=== PATIENT | female | born 1960 | race African-American/Black ===

== ENCOUNTER 2022-02-18 10:42 | Outpatient (CLI) | payer MEDICARE | END 2022-02-18 10:43 | disposition home or self-care (01) | LOC: BICMAMMO 10:42 | PROVIDERS: ATTEND Family Medicine | DX: Z12.31 Encounter for screening mammogram for malignant neoplasm of breast (principal); Z80.3 Family history of malignant neoplasm of breast | CPT/HCPCS: 77063; 77067 ==

== ENCOUNTER 2022-03-19 17:07 | Inpatient (IN) | payer MEDICARE, MEDICAID ==
[2022-03-19 19:28] VITALS: BMI 35.2
[2022-03-19] MEDS ORDERED: Senokot S 8.6-50 MG TAB PO PRN (19:46)
[2022-03-19] MEDS ORDERED: Bisacodyl 5 MG TAB PO PRN (19:46)
[2022-03-19] MEDS ORDERED: Ondansetron PF 4 MG/2 ML Vial IVP PRN (19:46)
[2022-03-19] MEDS ORDERED: Melatonin 3 MG TAB PO PRN (19:54)
[2022-03-19] MEDS ORDERED: Enoxaparin Sodium 40 MG/0.4 ML SYRINGE SC SCH (20:00)
[2022-03-19] MEDS ORDERED: methylPREDNISolone Sod Succ/PF 1,000 MG in Sodium Chloride 0.9% 250 ML 250 ML IVPB SCH (20:00)
[2022-03-19] MEDS ORDERED: Aspirin Chewable 81 MG TAB PO SCH (20:15)
[2022-03-19] MEDS: Sodium Chloride 0.9% 1,000 ML IV SCH (21:17)
[2022-03-20 06:04] LABS: #Lymphocytes 1.1 thou/uL (1.20-3.40); #Neutrophils 4.2 thou/uL (1.40-6.50); %Basophils 0.2 % (0.0-1.0); %Eosinophils 0.2 % (0.0-10.0); %Lymphocytes 20.7 % (21.0-51.0); %Monocytes 0.7 % (0.0-10.0); %Neutrophils 78.3 % (42.0-75.0); Hemoglobin 12.5 g/dL (12.0-16.0); Mean Corpuscular Hemoglobin 28.6 pg (27.0-31.0); Mean Corpuscular Volume 86.7 fL (78.0-98.0); Mean Platelet Volume 6.7 fL (7.4-10.4); Platelet Count 290 thou/uL (130-400); RBC Distribution Width 13.2 % (11.5-14.5); Red Blood Cell (RBC) Count 4.36 mill/uL (4.20-5.40); White Blood Cell (WBC) Count 5.3 thou/uL (4.8-10.8)
[2022-03-20 06:27] LABS: ALT (SGPT) 9 U/L (8-55); AST (SGOT) 12 U/L (5-34); Alkaline Phosphatase 61 U/L (40-110); Anion Gap 15 mmol/L (10-20); BUN (Urea Nitrogen) 16 mg/dL (9.8-20.1); Bilirubin, Total 0.2 mg/dL (0.2-1.2); Calc. Creatinine Clearance 127 mL/min (70-130); Calcium 9.1 mg/dL (7.8-10.44); Carbon Dioxide 21 mmol/L (23-31); Chloride 108 mmol/L (98-107); Globulin 3.8 g/dL (2.4-3.5); Glucose 143 mg/dL (80-115); Protein, Total 7.8 g/dL (5.8-8.1); Sodium 140 mmol/L (136-145)
[2022-03-20 07:55] LABS: Cardiac Risk 4.3 (Less than 4.5)
[2022-03-20] MEDS ORDERED: Enoxaparin Sodium 40 MG/0.4 ML SYRINGE SC SCH (09:00)
[2022-03-20] MEDS: Aspirin Chewable 81 MG TAB PO SCH (10:01)
[2022-03-20] MEDS: Amlodipine 10 MG TAB PO SCH (10:01)
[2022-03-20] MEDS: Sodium Chloride 0.9% 1,000 ML IV SCH ×2 (10:02→22:43)
[2022-03-20 12:43] LABS: Hemoglobin A1c 5.9 % (4.0-6.0)
[2022-03-20 12:51] LABS: Cardiac Risk 4.3 (Less than 4.5)
[2022-03-20] MEDS ORDERED: Magnevist 469MG/ML 20 ML VIAL ONE ×3 (14:32→15:07)
[2022-03-20 15:14] LABS: Syphilis Antibody Nonreactive (Nonreactive); Syphilis Antibody Index 0.27 S/CO (<1.00 Non-Reactive)
[2022-03-20] MEDS: Acetaminophen 325 MG TAB PO PRN ×2 (18:17→21:25)
[2022-03-20] MEDS: Atorvastatin Calcium 40 MG TAB PO SCH (20:28)
[2022-03-21 04:51] LABS: #Lymphocytes 1.2 thou/uL (1.20-3.40); #Monocytes 0.4 thou/uL (0.11-0.59); #Neutrophils 11.6 thou/uL (1.40-6.50); %Basophils 0.2 % (0.0-1.0); %Eosinophils 0.1 % (0.0-10.0); %Monocytes 3.1 % (0.0-10.0); %Neutrophils 87.6 % (42.0-75.0); Hemoglobin 11.9 g/dL (12.0-16.0); Mean Corpuscular HGB CONC 33.4 g/dL (32.0-36.0); Mean Corpuscular Hemoglobin 28.8 pg (27.0-31.0); Mean Corpuscular Volume 86.2 fL (78.0-98.0); Mean Platelet Volume 6.8 fL (7.4-10.4); Platelet Count 278 thou/uL (130-400); RBC Distribution Width 13.4 % (11.5-14.5); Red Blood Cell (RBC) Count 4.13 mill/uL (4.20-5.40); White Blood Cell (WBC) Count 13.3 thou/uL (4.8-10.8)
[2022-03-21 05:10] LABS: Anion Gap 12 mmol/L (10-20); BUN (Urea Nitrogen) 16 mg/dL (9.8-20.1); Calc. Creatinine Clearance 138 mL/min (70-130); Calcium 8.7 mg/dL (7.8-10.44); Carbon Dioxide 23 mmol/L (23-31); Chloride 109 mmol/L (98-107); Glucose 135 mg/dL (80-115); Potassium 3.7 mmol/L (3.5-5.1); Sodium 140 mmol/L (136-145)
[2022-03-21] MEDS: Sodium Chloride 0.9% 1,000 ML IV SCH (05:24)
[2022-03-21] MEDS: Aspirin Chewable 81 MG TAB PO SCH (09:03)
[2022-03-21] MEDS: Amlodipine 10 MG TAB PO SCH (09:03)
[2022-03-21 19:36] LABS: ANA Symphony (Qualitative) Equivocal: See Note (Negative); CCP IgG Antibody 4.1 EliAU/mL (<7 Negative); CENP IgG Antibody 0.4 EliAU/mL (<7 Negative); Jo-1 IgG Antibody Less than 0.3 EliAU/mL (<7 Negative); RNP70 IgG Antibody 0.5 EliAU/mL (<7 Negative); Rheumatoid Factor IgA Antibody 5.4 IU/mL (<14 Negative); Rheumatoid Factor IgM Antibody 0.7 IU/mL (<3.5 Negative); SSB/La IgG Antibody Less than 0.3 EliAU/mL (<7 Negative); Scleroderma-70 IgG Antibody 1.2 EliAU/mL (<7 Negative); Smith D IgG Antibody 3.4 EliAU/mL (<7 Negative); dsDNA IgG Antibody 0.7 IU/mL (<10 Negative)
[2022-03-21] MEDS: Atorvastatin Calcium 40 MG TAB PO SCH (19:39)
[2022-03-22] MEDS: Aspirin Chewable 81 MG TAB PO SCH (08:31)
[2022-03-22] MEDS: Amlodipine 10 MG TAB PO SCH (08:34)
[2022-03-22] MEDS: Atorvastatin Calcium 40 MG TAB PO SCH (20:55)
[2022-03-23] MEDS: Aspirin Chewable 81 MG TAB PO SCH (08:49)
[2022-03-23] MEDS: Amlodipine 10 MG TAB PO SCH (08:50)
[2022-03-23 11:39] VITALS: BP 105/74; TEMP 98.3
== END 2022-03-23 15:27 | DRG 65 ==
LOC: T4-A 17:07 → NEURO 03-20 13:08
PROVIDERS: ADMIT Internal Medicine; ATTEND Internal Medicine
DX: I63.81 Other cerebral infarction due to occlusion or stenosis of small artery (principal); G81.91 Hemiplegia, unspecified affecting right dominant side; G35 Multiple sclerosis; R13.10 Dysphagia, unspecified; R47.1 Dysarthria and anarthria; M51.35 Other intervertebral disc degeneration, thoracolumbar region; R01.1 Cardiac murmur, unspecified; M48.02 Spinal stenosis, cervical region; R29.710 NIHSS score 10; M50.31 Other cervical disc degeneration, high cervical region; E78.5 Hyperlipidemia, unspecified; I10 Essential (primary) hypertension; Z79.82 Long term (current) use of aspirin; Z88.2 Allergy status to sulfonamides; Z79.899 Other long term (current) drug therapy
CPT/HCPCS: 36415; 70553; 72156; 72158; 80048; 80053; 80061; 83036; 83520; 83735; 85025; 85652; 86038; 86200; 86225; 86235; 86780; 93306; 93880; A9579; J2930; J7050